=== PATIENT | male | born 1945 | race Caucasian/White ===

== ENCOUNTER 2017-10-27 15:06 | Inpatient (IN) | payer MEDICARE ==
[~2017-10-27] VITALS: Ht 188 cm; Wt 83.9 kg
--- NOTE | 2017-10-27 15:48 | NUR ---
MORIS BOYLE AT BEDSIDE FOR EVAL
[2017-10-27] MEDS ORDERED: BIMA2.5D5 EACHEYE (17:06)
[2017-10-27] MEDS ORDERED: OMEP40CA37 PO (17:06)
[2017-10-27] MEDS ORDERED: OMEP20CA10 PO (17:06)
[2017-10-27] MEDS ORDERED: GABA-536 PO (17:06)
[2017-10-27] MEDS ORDERED: OXCA150T5 PO (17:06)
[2017-10-27] MEDS ORDERED: DESV50TA10 PO (17:06)
[2017-10-27] MEDS ORDERED: ATOR20TA PO (17:06)
[2017-10-27] MEDS ORDERED: HYDR-548 PO (17:06)
[2017-10-27 18:43] VITALS: BP 136/77
--- NOTE | 2017-10-27 18:45 | NUR ---
RN NOTES PATIENT BELONGING AND CONTRABAND CHECKED, CALL [facility] NEAR TO REACH. CONTINUED MONITORING.
--- NOTE | 2017-10-27 18:45 | NUR ---
TAKEN TO GPS FLOOR IN STABLE CONDITION. NO S/S OF DISTRES NOTED AT THSI TIME. RESP EVEN AND UNLABORED.
--- NOTE | 2017-10-27 18:46 | NUR ---
RN NOTES PATIENT DIRECT AD[facility] Dx [facility] SI, PSYCHOSIS NOS. PATIENT A/O X4, REFUSED SI/HI AT THIS TIME. PATIENT HAS NO ACUTE RESPIRATORY DISTRESS, NO SOB. SKIN ASSESSMENT DONE, SKIN CLEAR, FACE PICTURE TAKEN. PATIENT SIGN PAPERWORK. V/S TAKEN BP -136/77, P-70, R-19, O2-99 ROOM AIR, T-97.9. PATIENT AMBULATORY SELF CARE USING BATHROOM. DR JONSE, AND DR URIOSTEGUI AWARE OF NEW PATIENT, AND MEDICATION. ENDORSED ONCOMING NURSE FOR CONTINUATION OF COMPUTER QUESTIONS.
[2017-10-27 20:00] VITALS: BP 115/65
[2017-10-27] MEDS ORDERED: MAG HYDROX/AL HYDROX/SIMETH 30 ML UDC PO PRN (20:00)
[2017-10-27] MEDS ORDERED: MAGNESIUM HYDROXIDE 30 ML UDC PO PRN (20:00)
[2017-10-27] MEDS ORDERED: ACETAMINOPHEN 325 MG TABLET PO PRN (20:00)
[2017-10-27] MEDS ORDERED: LORAZEPAM 0.5 MG TABLET PO PRN (20:00)
[2017-10-27] MEDS: LATANOPROST EYE DROP 0.005% 2.5 ML BOTTLE OP SCH (21:22)
[2017-10-27] MEDS ORDERED: ATORVASTATIN 10 MG TABLET PO SCH (22:00)
--- NOTE | 2017-10-28 02:46 | NUR ---
PT REFUSED EKG AT THIS TIME , FABIAN MALLOY NOTIFIED
--- NOTE | 2017-10-28 06:19 | NUR ---
GPS/RN PATIENT STILL SLEEPING AT THIS TIME, EASILY AROUSABLE, APPEAR COMFORTABLE, NO SIGNS OF DISTRESS NOTED, NO BEHAVIOR PROBLEMS THE WHOLE SHIFT. ALL NEEDS ATTENDED AT THIS TIME. WILL CONTINUE TO MONITOR.
[2017-10-28 06:47] LABS: HEMATOCRIT 40 % (39-51); HEMOGLOBIN 13.2 g/dL (13.5-17.5); LYMPHOCYTES # (AUTO) 1.6 /CMM (0.8-4.8); MEAN CORPUSCULAR HGB CONC 33 g/dl (31.0-36.0)
[2017-10-28 07:04] LABS: ALANINE AMINOTRANSFERASE 34 U/L (12-78); ALBUMIN 3.6 g/dL (3.4-5.0); ALKALINE PHOSPHATASE 73 U/L (46-116); ASPARTATE AMINOTRANSFERASE 22 U/L (15-37); BILIRUBIN,TOTAL 0.6 mg/dL (0.2-1.0); CALCIUM, SERUM 8.6 mg/dL (8.5-10.1); CARBON DIOXIDE 25 mmol/L (21-32); CHLORIDE 108 mmol/L (98-107); GLUCOSE 100 mg/dL (74-106); POTASSIUM 4.1 mmol/L (3.5-5.1); SODIUM SERUM 143 mmol/L (136-145); TOTAL PROTEIN, SERUM 6.7 g/dL (6.4-8.2); UREA NITROGEN, BLOOD 28 mg/dL (7-18)
[2017-10-28 07:08] LABS: CHOLESTEROL 145 mg/dL (<200); HDL CHOLESTEROL 52 mg/dL (40-60); LDL 81 mg/dL (0-99); TRIGLYCERIDES 112 mg/dL (30-150)
[2017-10-28] MEDS ORDERED: Medication Not On Formulary EA (Omeprazole 20 MG) PO SCH (07:30)
[2017-10-28 07:54] LABS: BASOPHILS % (AUTO) 0.3 % (0.0-2.0); EOSINOPHILS % (AUTO) 2.9 % (0.0-6.0); LYMPHOCYTES % (AUTO) 23.1 % (20.0-44.0); MEAN CORPUSCULAR HEMOGLOBIN 31 PG (26.0-33.0); MEAN CORPUSCULAR VOLUME 94 fL (80-96); MONOCYTES # (AUTO) 0.6 /CMM (0.1-1.30); MONOCYTES % (AUTO) 8.4 % (2.0-12.0); NEUTROPHILS # (AUTO) 4.5 /CMM (1.8-8.9); NEUTROPHILS % (AUTO) 65.3 % (43.0-81.0); PLATELET COUNT (AUTO) 140 /CMM (150-450); RDW COEFFICIENT OF VARIATION 13.7 (11.5-15.0); RED BLOOD CELL COUNT(AUTO) 4.24 MIL/uL (4.5-6.0); WHITE BLOOD COUNT (AUTO) 6.9 K/uL (4.3-11.0)
[2017-10-28 08:51] VITALS: BP 126/76
[2017-10-28] MEDS: ASPIRIN 325 MG TABLET PO SCH (09:04)
[2017-10-28] MEDS: PANTOPRAZOLE 40 MG TABLET.DR PO SCH (09:04)
--- NOTE | 2017-10-28 10:00 | NUR ---
GPS/RN-NOTES PATIENT GAVE VERBAL CONSENT TO GIVE INFORMATION ABOUT HIM TO HER DAUGHTER EDUARDO AND SON DEMETRIA SUÁREZ
--- NOTE | 2017-10-28 10:33 | NUR ---
GPS/RN-NOTES PATIENT WAS SEEN BY DR. SILVERMAN AND HE'S AWARE OF LAB'S RESULTS AND CHEST X-RAY RESULTS TODAY WITH NNO.
--- NOTE | 2017-10-28 12:41 | NUR ---
GPS/RN-NOTES RECEIVED VERBAL ORDER FROM DR. SILVERMAN OF [facility] 8.6MG 2 TABLETS P.O QHS. NOTED AND CARRIED OUT.
[2017-10-28] MEDS: OXCARBAZEPINE 150 MG TABLET PO SCH ×2 (12:43→17:11)
[2017-10-28] MEDS: GABAPENTIN 400 MG CAPSULE PO SCH ×2 (13:31→21:23)
[2017-10-28 16:00] VITALS: BP 126/74
--- NOTE | 2017-10-28 16:45 | NUR ---
GPS/RN-NOTES PATIENT AGREED TO GIVE TO HIS SON DEMETRIA SUÁREZ JR. AND DAUGHTER FAYE RUSSELL SOME OF THE HIS VALUABLES INCLUDING [employer] MONEY OF $2215.00, X3 CHECKS,SETS OF KEYS, X2 CELLPHONES WITH X1 PROGRAM SPECIALIST. WITNESS BY THE CHARGE NURSE DANIELA. Addendum: 10/28/17 at 1846 by WENDY GOODEN RN CORRECTION ON MY ABOVE NOTES. DREW MCKINNEY WAS THE PATIENT DAUGHTER IN-LAW.
[2017-10-28 20:27] VITALS: BP 135/73
[2017-10-28] MEDS: ATORVASTATIN 40 MG TABLET PO SCH (21:23)
[2017-10-28] MEDS: SENNOSIDES 8.6 MG TABLET PO SCH (21:23)
[2017-10-28] MEDS: LATANOPROST EYE DROP 0.005% 2.5 ML BOTTLE OP SCH (21:23)
[2017-10-29] MEDS: TEMAZEPAM 7.5 MG CAPSULE PO PRN (00:14)
[2017-10-29] MEDS: GABAPENTIN 400 MG CAPSULE PO SCH ×3 (05:23→21:16)
[2017-10-29 08:00] VITALS: BP 112/71
[2017-10-29 08:08] LABS: MAGNESIUM 2.4 mg/dL (1.8-2.4); PHOSPHORUS 3.2 mg/dL (2.5-4.9)
[2017-10-29] MEDS: PANTOPRAZOLE 40 MG TABLET.DR PO SCH (08:37)
[2017-10-29] MEDS: ASPIRIN 325 MG TABLET PO SCH (08:37)
[2017-10-29] MEDS: OXCARBAZEPINE 150 MG TABLET PO SCH ×2 (08:37→17:23)
[2017-10-29 08:40] LABS: THYROID STIMULATING HORMONE 0.818 uIU/mL (0.358-3.74)
--- NOTE | 2017-10-29 11:50 | NUR ---
Initial Discharge Plan: Pt currently resides at [address] [place] [address] ([phone]). Per pt, he would like to return home. SW will work with the pt and the MD regarding appropriate discharge. SW will form a safe and proper discharge.
--- NOTE | 2017-10-29 12:56 | NUR ---
SW called the pt's daughter in law, Melissa Norwood ([phone]), and left a message.
[2017-10-29 16:00] VITALS: BP 119/61
[2017-10-29 20:13] VITALS: BP 122/73
[2017-10-29] MEDS: LATANOPROST EYE DROP 0.005% 2.5 ML BOTTLE OP SCH (21:15)
[2017-10-29] MEDS: SENNOSIDES 8.6 MG TABLET PO SCH (21:15)
[2017-10-29] MEDS: ATORVASTATIN 40 MG TABLET PO SCH (21:16)
[2017-10-30] MEDS: GABAPENTIN 400 MG CAPSULE PO SCH ×3 (05:53→22:01)
[2017-10-30 08:00] VITALS: BP 99/69
[2017-10-30] MEDS: ASPIRIN 325 MG TABLET PO SCH (08:27)
[2017-10-30] MEDS: OXCARBAZEPINE 150 MG TABLET PO SCH ×2 (08:30→17:14)
[2017-10-30] MEDS: PANTOPRAZOLE 40 MG TABLET.DR PO SCH (08:30)
--- NOTE | 2017-10-30 15:54 | NUR ---
GPS/RN MRSA SWAB COLLECTED AND LAB CALLED FOR PICKUP.
--- NOTE | 2017-10-30 15:55 | NUR ---
GPS/RN PATIENT AWARE OF NEED FOR URINE TO BE COLLECTED FOR UA. ENCOURAGED TO NOTIFY RN FOR COLLECTION OF SPECIMEN.
[2017-10-30 16:00] VITALS: BP 146/72
[2017-10-30] MEDS ORDERED: BENEFIBER 4 GM 1 EA PACKET PO PRN (17:00)
[2017-10-30] MEDS ORDERED: BENEFIBER 4 GM 1 EA PACKET PO SCH (17:00)
[2017-10-30 17:26] LABS: APPEARANCE,URINE SL CLOUDY (CLEAR); BILIRUBIN,URINE NEGATIVE (NEGATIVE); BLOOD, URINE NEGATIVE Ery/uL (NEGATIVE); COLOR,URINE YELLOW (YELLOW); KETONES,URINE NEGATIVE (NEGATIVE); NITRITE, URINE NEGATIVE (NEGATIVE); PROTEIN,URINE NEGATIVE (NEGATIVE); UGLUCOSE NEGATIVE (NEGATIVE); UROBILINOGEN,URINE 0.2 EU/dL (0.2)
[2017-10-30 17:27] LABS: LEUKOCYTE ESTERASE ,URINE NEGATIVE (NEGATIVE)
[2017-10-30 20:00] VITALS: BP 117/67
[2017-10-30] MEDS ORDERED: QUETIAPINE FUMARATE 25 MG TABLET ONE (21:30)
[2017-10-30] MEDS: LATANOPROST EYE DROP 0.005% 2.5 ML BOTTLE OP SCH (22:00)
[2017-10-30] MEDS: SENNOSIDES 8.6 MG TABLET PO SCH (22:00)
[2017-10-30] MEDS ORDERED: QUETIAPINE FUMARATE 25 MG TABLET PO SCH (22:00)
[2017-10-30] MEDS: TEMAZEPAM 7.5 MG CAPSULE PO PRN (22:01)
[2017-10-30] MEDS: ATORVASTATIN 40 MG TABLET PO SCH (22:01)
--- NOTE | 2017-10-30 22:10 | NUR ---
GPS/LICENSED CERTIFIED ORTHOTIST NOTES: PT. REFUSED HS QUETIAPINE 12.5MG PO AND SENNOSIDES 8.6MG PO ORDERED. OFFERED 3X. EXPLAINED RISK AND BENEFITS. PT. STILL REFUSED.
[2017-10-31] MEDS: GABAPENTIN 400 MG CAPSULE PO SCH ×2 (06:25→12:33)
[2017-10-31 08:37] VITALS: BP 113/68
[2017-10-31] MEDS: ASPIRIN 325 MG TABLET PO SCH (08:52)
[2017-10-31] MEDS: PANTOPRAZOLE 40 MG TABLET.DR PO SCH (08:52)
[2017-10-31] MEDS: OXCARBAZEPINE 150 MG TABLET PO SCH (08:53)
--- NOTE | 2017-10-31 10:00 | NUR ---
GPS/RN RECEIED ORDERS FROM DR. JONES TO D/C PT AGAINST MEDIAL ADVISE
--- NOTE | 2017-10-31 10:02 | NUR ---
QUITA called Yusra ([phone]), pt's ex-, and discussed with her that the pt wants to leave against medical advice and that he would need a safe place to go. Yusra stated that he can live at her apartment located at [address] [place] [address] until he finds a place with his son. Yusra stated that there no means to harm oneself at her apartment such as weapons, alcohol or drugs.
--- NOTE | 2017-10-31 10:02 | NUR ---
SW called the pt's daughter in law, Melissa Norwood ([phone]), and left a message.
--- NOTE | 2017-10-31 10:06 | NUR ---
SW called the pt's daughter in law, Melissa Norwood ([phone]), and left a message.
--- NOTE | 2017-10-31 10:19 | NUR ---
QUITA called the pt's son, Petey Fan ([phone]), and informed him about the discharge.
--- NOTE | 2017-10-31 11:56 | NUR ---
GPS/RN PT DECLINED THE PRESCRIPTIONS FOR TRILEPTAL. PT STATES:" I AM NOT GOING TO TAKE ANY PSYCH MEDS...." NO SI OR HI NOTED AT THIS TIME
--- NOTE | 2017-10-31 12:49 | NUR ---
PATIENT STATES HE DOES NOT WANT ANY PSYCH PRESCRIPTIONS.
[2017-10-31] MEDS ORDERED: OXCARBAZEPINE 150 MG TABLET PO SCH (13:00)
--- NOTE | 2017-10-31 14:45 | NUR ---
GPS/RN NO SI OR HI NOTED AT THE TIME OF D/C . PT ACCEPTED THE PRESCRIPTIONS FOR TRILEPTAL. PROPERTY AND MEDICATIONS RETURNED. PT HAS THE FUNDS TO PAY FOR THE TRANSPORTATION TO THE PLACE OF RESIDENCE.
--- NOTE | 2017-10-31 15:49 | NUR ---
Pt's daughter in law, Melissa Norwood ([phone]), and she stated that she cannot pickling solution maker the pt and that he would have to go by bus and train.
--- NOTE | 2017-10-31 15:56 | NUR ---
RN NOTE: PATIENT ESCORTED OUT THE UNIT, DOWNSTAIRS. PATIENT AGREED TO TAKE PRESCRIPTIONS OF TRILEPTAL. PATIENT LEFT WITH BELONGINGS AND RECEIVED COPY OF EXIT CARE PAPERS. PATIENT STATES HE IS TAKING PUBLIC TRANSPORTATION TO EX 'S APARTMENT. ARMBAND IS CUT OFF PATIENT. PATIENT DENIES SI/HI DURING DISCHARGE.
--- NOTE | 2017-10-31 15:56 | NUR ---
QUITA called the [facility] ([phone]) and made a psychiatry appointment for November 04 at 3:00pm.
--- NOTE | 2017-10-31 16:06 | NUR ---
Discharge Note: Pt discharged AMA (Against Medical Advice) to live with his ex-, Yusra, at [address] [facility] [address], [facility], [place] [address]; ([phone]). SW confirmed with the ex- that the home is safe from objects that could cause harm to the pt such as weapons, alcohol and drugs before discharging him. Pt took the bus and then the train as his method of transportation from the hospital to this location. Pt was provided with three substance abuse referrals that are listed below. Upon discharge, the pt denied suicidal and homicidal ideation as well as visual and auditory hallucinations. Pts mood was euthymic and his affect was flat upon discharge. Pt was upset with his son and his daughter in law due to their lack of involvement. Pt will be under the care of the psychiatrist, Dr. Angelo, located at [address] [place] [address]; [phone]). Pt has an appointment set up for November 04 at 3:00pm. Pt will also be under the care of his insurance sales supervisor, Dr. Johns, located at [address] [place] [address]; [phone]). Addendum: 10/31/17 at 1619 by RADHA DEVLIN Substance Abuse Referrals: [facility] [address] [place] [address] Tel. [facility] Provider Mental Health Treatment Tele-dermatology HIV Services Telemedicine Services [facility] [address] [place] [address] [facility] [address] [place] [address]
== END 2017-10-31 15:50 | disposition left against medical advice (07) | DRG 885 ==
LOC: ER 15:07 → GPS 17:31
PROVIDERS: ADMIT Psychiatry & Neurology Psychosomatic Medicine; ATTEND Psychiatry & Neurology Psychosomatic Medicine
DX: F31.9 Bipolar disorder, unspecified (principal); I11.0 Hypertensive heart disease with heart failure; R45.851 Suicidal ideations; E86.0 Dehydration; G40.909 Epilepsy, unspecified, not intractable, without status epilepticus; Z79.899 Other long term (current) drug therapy; E78.5 Hyperlipidemia, unspecified; H40.10X0 Unspecified open-angle glaucoma, stage unspecified; G89.4 Chronic pain syndrome; K21.9 Gastro-esophageal reflux disease without esophagitis; F41.9 Anxiety disorder, unspecified; I50.9 Heart failure, unspecified; Z59.0 Homelessness; Z86.73 Personal history of transient ischemic attack (TIA), and cerebral infarction without residual deficits; F14.11 Cocaine abuse, in remission; F29 Unspecified psychosis not due to a substance or known physiological condition
CPT/HCPCS: 36415; 71045-TC; 80053-TC; 80061-TC; 81000-TC; 83735-TC; 84100-TC; 84443-TC; 85025-TC; 87081-TC